=== PATIENT | female | born 2000 ===

== ENCOUNTER 2021-06-09 07:16 | Outpatient (CLI) | payer OTHER | END 2021-06-09 14:55 | disposition home or self-care (01) | LOC: TOM 07:16 | PROVIDERS: ATTEND Otolaryngology | DX: B99.8 Other infectious disease (principal) ==

== ENCOUNTER 2021-07-08 09:08 | Outpatient (CLI) | payer OTHER | END 2021-07-08 09:12 | disposition home or self-care (01) | LOC: SONOGRAMA 09:08 | PROVIDERS: ATTEND Pathology Anatomic Pathology & Clinical Pathology | DX: R22.1 Localized swelling, mass and lump, neck (principal) ==